=== PATIENT | male | born 2000 | race Caucasian/White ===

== ENCOUNTER 2022-09-08 15:03 | Emergency (ER) | payer OTHER, SELFPAY ==
--- NOTE | 2022-09-08 15:13 | ED_ITS ---
HPI - Headache General Chief Complaint: Upper Respiratory Symptoms <Muna Desai CNP - Last Filed: 09/08/22 15:17> Stated Complaint: Headache/Abd pain <Muna Desai CNP - Last Filed: 09/08/22 15:17> Time Seen by Provider: 09/08/22 18:15 <Muna Desai CNP - Last Filed: 09/08/22 15:17> Source: patient <GERER Durand - Last Filed: 09/08/22 18:33> Mode of arrival: ambulatory <GREER Durand - Last Filed: 09/08/22 18:33> Limitations: no limitations <GREER Durand Last Filed: 09/08/22 18:33> History of Present Illness HPI Narrative: 22-year-old male no significant medical history presents to the emergency department with headache ( diffuse w/o dizziness, head trauma, vision changes), congestion, rhinorrhea, fatigue, malaise, nausea, vomiting, dry cough, chest discomfort with coughing. Tells me he has the flu shot. No known sick contacts. Denies fevers, chills, chest pain, shortness of breath, vision changes <GREER Durand Last Filed: 09/08/22 18:33> Related Data Allergies/Adverse Reactions: Allergies Allergy/AdvReac Type Severity Reaction Status Date / Time No Known Allergies Allergy Unverified 06/06/20 17:36 <Muna Desai CNP - Last Filed: 09/08/22 15:17> Review of Systems Review of Systems: Constitutional : No Weight loss, No Fever, No Chills, + Fatigue, + Malaise ENT/Mouth : No sore throat, + Rhinorrhea, + congestion Eyes: No Eye Pain, No Swelling, No Redness Cardiovascular : No Chest Pain, No SOB, No Dyspnea on Exertion, No Orthopnea, No Edema, No Palpitations Respiratory : + Cough, No Sputum, No Wheezing Gastrointestinal : + Nausea, + Vomiting, No Diarrhea, No Constipation, No abdominal Pain, No Hematochezia, No Melena Genitourinary : No Dysuria, No Urinary Frequency, No Hematuria, Musculoskeletal : No joint pain, + Myalgias, No Joint Swelling Skin : No Skin Lesions, No rash Neuro : No Weakness, No Numbness, No Dizziness, No Headache Psych : No Anxiety/Panic, No Depression All other systems reviewed and are negative <GREER Durand - Last Filed: 09/08/22 18:33> Yes all other systems are reviewed and are negative <GREER Durand - Last Filed: 09/08/22 18:33> [facility] Past Medical History Attestation statement: The following information was validated with the patient. <GREER Durand - Last Filed: 09/08/22 18:33> Source: old records reviewed and nursing notes reviewed <GREER Durand - Last Filed: 09/08/22 18:33> Social History Social History: Social History Advance Directives: No Advance Directives Information Provided: No <Muna Desai CNP - Last Filed: 09/08/22 15:17> Physical Exam Vital Signs: Vital Signs: Last Vital Signs Temp 100.9 F H 09/08/22 15:15 Pulse 105 H 09/08/22 15:15 Resp 18 09/08/22 15:15 BP 130/79 09/08/22 15:15 Pulse Ox 96 09/08/22 15:15 O2 Del Method 09/08/22 15:15 BMI result Body Mass Index 18.2 <Muna Desai CNP - Last Filed: 09/08/22 15:17> Vital Signs: Last Vital Signs Temp 100.9 F H 09/08/22 15:15 Pulse 105 H 09/08/22 15:15 Resp 18 09/08/22 15:15 BP 130/79 09/08/22 15:15 Pulse Ox 96 09/08/22 15:15 O2 Del Method 09/08/22 15:15 BMI result Body Mass Index 18.2 vss <GREER Durand - Last Filed: 09/08/22 18:33> Appearance: Alert.? Oriented X3.? No acute distress.? Head: Normocephalic, atraumatic, no step-offs or deformities Eyes: Pupils equal, round and reactive to light.? ENT: Pharynx normal.?? No pain with manipulation of external ears bilaterally. No mastoid tenderness. Neck: Normal inspection.? Neck supple.? CVS: Rapid? Pul rate normal rhythm likely sinus tachycardia.ses normal.? Respiratory: No respiratory distress.? Breath sounds normal.? Abdomen: Soft and nontender.? Skin: Skin warm and dry.? Normal skin color.? Normal skin turgor.? Extremities: No lower extremity edema.? No calf ttp. 5/5 strength to bilateral upper and lower extremities Neuro: Oriented X 3.? No motor deficit.? No sensory deficit. CN 2-12 intact . Ambulating with steady gait normal coordination. <GREER Durand - Last Filed: 09/08/22 18:33> Course Course Course Narrative: RME: Patient is a 22-year-old male who [facility] of viral symptoms. Reports that he awoke yesterday with lightheadedness, nausea, vomiting, headache with light sensitivity, pain to the chest with coughing. No fevers, chills, neck pain, neck stiffness, shortness of breath, difficulty breathing, abdominal pain, dysuria urinary frequency. Overall is well-appearing, nontoxic. Speaking clear full sentences. No respiratory distress. LSCTA. No nuchal rigidity, no meningismus, low suspicion for meningitis. Febrile 100.9, tachycardic 110's. Plan: Viral testing, Will medicate with ibuprofen, and plan to re-evaluate <Muna Desai CNP - Last Filed: 09/08/22 15:17> Reevaluation(s) Reevaluation #1: Patient noted to be positive for influenza likely contributing to all of patient's symptoms. At this time patient will be discharged home educated on supportive measures symptoms have been going on for greater than 48 hours therefore not a candidate for Tamiflu. Educated patient on diagnosis and treatment plan, answered all question, patient verbalizes understanding. At this time patient will be discharged home, advised to return with new or worsening symptoms. Educated on worrisome signs and symptoms and when to return. At this time I feel comfortable discharge home. <GREER Durand - Last Filed: 09/08/22 18:33> Time: 18:24 <GREER Durand - Last Filed: 09/08/22 18:33> Medications Administered Discontinued Medications Generic Name Dose Route Start Last Admin Trade Name Freq PRN Reason Stop Dose Admin Ibuprofen 600 mg 09/08/22 15:17 09/08/22 15:21 Ibuprofen 600 Mg Tablet PO 09/08/22 15:18 600 mg ONCE ONE Administration <Muna Desai CNP - Last Filed: 09/08/22 15:17> Medications Administered Discontinued Medications Generic Name Dose Route Start Last Admin Trade Name Freq PRN Reason Stop Dose Admin Ibuprofen 600 mg 09/08/22 15:17 09/08/22 15:21 Ibuprofen 600 Mg Tablet PO 09/08/22 15:18 600 mg ONCE ONE Administration <GREER Durand - Last Filed: 09/08/22 18:33> Medical Decision Making Medical Decision Making [facility] Narrative: 1820 22 year old male presents w/ flu like sx X 2 days. PE with rapid rate regular rhythm and fever. . Patient was however noted to be febrile upon initial exam he was given ibuprofen. History and physical examination likely viral infection. Unlikely meningitis, pneumonia, PE, ICH, stroke,posterior stroke, encephalitis. Rapid regular rhythm likely secondary to viral infection, I do not suspect sepsis Plan- viral testing <GREER Durand - Last Filed: 09/08/22 18:33> Lab Data Labs: Lab Results 09/08/22 Range/Units 15:18 Influenza Type A (PCR) POSITIVE A (Negative) Influenza Type B (PCR) NEGATIVE (Negative) RSV RNA Qual (PCR) NEGATIVE (Negative) SARS-CoV-2 RNA (RT-PCR) NEGATIVE (Negative) <Muna Desai CNP - Last Filed: 09/08/22 15:17> Lab Results 09/08/22 Range/Units 15:18 Influenza Type A (PCR) POSITIVE A (Negative) Influenza Type B (PCR) NEGATIVE (Negative) RSV RNA Qual (PCR) NEGATIVE (Negative) SARS-CoV-2 RNA (RT-PCR) NEGATIVE (Negative) <GREER Durand - Last Filed: 09/08/22 18:33> Critical Care Time Critical Care Time Critical Care Time: No <GREER Durand - Last Filed: 09/08/22 18:33> Discharge Plan Discharge Clinical Impression: Influenza <Muna Desai CNP - Last Filed: 09/08/22 15:17> Patient Disposition: Home, Self-Care <Muna Desai CNP - Last Filed: 09/08/22 15:17> Additional Instructions: Take your medications as prescribed. If you were prescribed antibiotics today, it is important that you take your medication to their entirety, do not skip any doses, do not finish them early. Follow-up with your primary care provider this week. Return to the emergency department with new or worsening symptoms. Such as fevers, chills, chest pain, shortness of breath, nausea, vomiting, dizziness, headache, vision changes, lethargy In case of emergency call 911 You tested positive for influenza today/the flu. Please wash her hands well, drink plenty of fluids. You can take ibuprofen olivia 6 hours and tylenol every 4 as needed for fevers, chills, pain or discomfort <Muna Desai CNP - Last Filed: 09/08/22 15:17> Referrals: Alexi Mendoza MD [Primary Care Provider] - 3 days <Muna Desai CNP - Last Filed: 09/08/22 15:17> Stand Alone Forms: Work/School Release <Muna Desai CNP - Last Filed: 09/08/22 15:17>
[2022-09-08 15:15] VITALS: BP 130/79; PULSE 105; RESP 18; TEMP 38.3; O2SAT 96; BMI 18.2
[2022-09-08] MEDS: Ibuprofen 600 MG TABLET PO (15:21)
[2022-09-08 16:03] LABS: Influenza A PCR POSITIVE (Negative); Influenza B PCR NEGATIVE (Negative); Resp Syncy Virus RNA Qual PCR NEGATIVE (Negative); SARS COV2 PCR INHOUSE NEGATIVE (Negative)
== END 2022-09-08 18:43 | disposition home or self-care (01) ==
PROVIDERS: Emergency Provider Emergency Medicine; PCP Pediatrics
DX: J11.1 Influenza due to unidentified influenza virus with other respiratory manifestations (principal); R50.9 Fever, unspecified; Z20.822 Contact with and (suspected) exposure to COVID-19
CPT/HCPCS: 0241U; 99283